=== PATIENT | female | born 1995 | race African-American/Black ===

== ENCOUNTER 2022-04-08 04:14 | Emergency (ER) | payer BC ==
[~2022-04-08] VITALS: Ht 149.9 cm; Wt 77.1 kg
[2022-04-08] MEDS ORDERED: AMOX TR-K CLV1 EAC2 PO (04:45)
[2022-04-08] MEDS ORDERED: IBUPROFEN 600 MG TAB PO STA (05:06)
[2022-04-08] MEDS ORDERED: AMOXICILLIN/CLAVULANATE K 500 MG TAB PO ONE (05:15)
[2022-04-08 05:49] LABS: BASOPHILS % 0.3 % (0.0-1.0); EOSINOPHILS # (AUTO) 0.1 (0.0-0.4); EOSINOPHILS % 0.6 % (0.0-6.0); HEMATOCRIT 43.6 % (34.2-44.1); HEMOGLOBIN 13.2 g/dL (12.0-16.0); LYMPHOCYTES # (AUTO) 2.6 (1.0-3.2); LYMPHOCYTES % 24.1 % (18.0-39.1); MEAN CORPUSCULAR HEMOGLOBIN 26.8 pg (28-32); MEAN CORPUSCULAR HGB CONC 30.3 g/dL (31-35); MEAN CORPUSCULAR VOLUME 88.6 fL (81-99); MONOCYTES # (AUTO) 0.8 (0.2-0.8); MONOCYTES % 7.3 % (4.4-11.3); NEUTROPHILS # (AUTO) 7.3 (2.1-6.9); NEUTROPHILS % 67.4 % (38.7-80.0); PLATELET COUNT 259 x10e3/uL (140-360); RED BLOOD COUNT 4.92 x10e6/uL (3.6-5.1); RED CELL DISTRIBUTION WIDTH 12.8 % (11.7-14.4)
[2022-04-08 06:10] LABS: ANION GAP 16.1 mmol/L (8-16); CALCIUM 9.3 mg/dL (8.4-10.2); CREATININE, SERUM 0.74 mg/dL (0.57-1.11); POTASSIUM 4.1 mmol/L (3.5-5.1)
[2022-04-08] MEDS ORDERED: ACETAMINOPHEN 325 MG TAB PO ONE (07:30)
[2022-04-08] MEDS ORDERED: ACETAMINOPHEN 325 MG TAB ONE (07:36)
== END 2022-04-08 07:32 | disposition home or self-care (01) ==
LOC: ER 04:29
DX: H60.91 Unspecified otitis externa, right ear (principal); K11.21 Acute sialoadenitis
CPT/HCPCS: 36415; 70486; 80048; 85025; 87040; 99284